=== PATIENT | male | born 1975 | race Two or more races ===

== ENCOUNTER 2018-03-20 14:22 | Emergency (ER) | payer MEDICAID ==
[~2018-03-20] VITALS: Ht 172.7 cm; Wt 81.0 kg
[~2018-03-20 14:22] MED LIST: CEPH-571 PO
[2018-03-20 14:45] VITALS: BP 169/108
[2018-03-20] MEDS ORDERED: TETanus/Pertussis (Acell)/Diphther VAC/PF (Tdap-Adult) 0.5ml syringe IM ONE (16:50)
[2018-03-20] MEDS ORDERED: LIDOcaine 1.5% w/epinephrine 1:200,000 5ml ampul IJ ONE (16:50)
[2018-03-20] MEDS ORDERED: LIDOcaine 1% w/EPI 1:100,000 30ml vial (MDV) IJ ONE (16:55)
[2018-03-20] MEDS ORDERED: CEPH-572 PO (17:16)
[2018-03-20] MEDS ORDERED: SULF1TAB49 PO (17:16)
[2018-03-20] MEDS ORDERED: cephalexin 250mg capsule PO ONE (17:20)
[2018-03-20] MEDS ORDERED: sulfamethoxazole/trimethoprim DS (800/160mg) tablet PO ONE (17:20)
== END 2018-03-20 17:28 | disposition home or self-care (01) ==
LOC: ER 14:22
DX: L02.416 Cutaneous abscess of left lower limb (principal); I10 Essential (primary) hypertension; F15.90 Other stimulant use, unspecified, uncomplicated; Z79.2 Long term (current) use of antibiotics; Z79.899 Other long term (current) drug therapy
CPT/HCPCS: 10060; 90471; 90715; 99283; J3490

== ENCOUNTER 2018-12-16 22:16 | Emergency (ER) | payer MEDICAID ==
[~2018-12-16] VITALS: Ht 172.7 cm; Wt 77.0 kg
[2018-12-16] MEDS ORDERED: CEPH-572 PO (23:42)
[2018-12-16] MEDS ORDERED: SULF1TAB49 PO (23:42)
[2018-12-17] MEDS ORDERED: IBUP-1985 PO (00:09)
[2018-12-17 00:19] VITALS: BP 160/100
== END 2018-12-17 00:21 | disposition home or self-care (01) ==
LOC: ER 22:17
DX: S91.302A Unspecified open wound, left foot, initial encounter (principal); S91.301A Unspecified open wound, right foot, initial encounter; L02.211 Cutaneous abscess of abdominal wall; I10 Essential (primary) hypertension; F15.90 Other stimulant use, unspecified, uncomplicated; Z79.2 Long term (current) use of antibiotics; Z79.899 Other long term (current) drug therapy; X58.XXXA Exposure to other specified factors, initial encounter; Y93.89 Activity, other specified; Y92.89 Other specified places as the place of occurrence of the external cause; Y99.8 Other external cause status
CPT/HCPCS: 99283

== ENCOUNTER 2020-05-24 03:34 | Emergency (ER) | payer MEDICAID ==
[~2020-05-24] VITALS: Ht 172.7 cm; Wt 77.3 kg
[~2020-05-24 03:34] MED LIST changes: +IBUP-1985 PO
[2020-05-24] MEDS ORDERED: lisinopril 10 MG tablet PO ONE (03:45)
[2020-05-24] MEDS ORDERED: amLODIPine 5mg tablet PO ONE (04:00)
--- NOTE | 2020-05-24 04:04 | NUR ---
GIVEN NORVASC 10 MG AND LISINOPRIL 10 MG PO. BP PRIOR TO MEDS 156/116, HR 89 NSR
[2020-05-24 04:05] VITALS: BP 156/116
[2020-05-24] MEDS ORDERED: LISI10TA27 PO (04:06)
[2020-05-24] MEDS ORDERED: AMLO10TA48 PO (04:06)
== END 2020-05-24 04:12 | disposition home or self-care (01) ==
LOC: ER 03:35
DX: Z00.8 Encounter for other general examination (principal); I10 Essential (primary) hypertension; F17.200 Nicotine dependence, unspecified, uncomplicated; F15.90 Other stimulant use, unspecified, uncomplicated; Z98.890 Other specified postprocedural states; Z72.89 Other problems related to lifestyle; Z79.2 Long term (current) use of antibiotics; Z79.899 Other long term (current) drug therapy
CPT/HCPCS: 99283

== ENCOUNTER 2021-02-26 02:47 | Emergency (ER) | payer MEDICAID ==
[~2021-02-26] VITALS: Ht 172.7 cm; Wt 93.2 kg
[~2021-02-26 02:47] MED LIST changes: +AMLO10TA48 PO; +LISI10TA27 PO
[2021-02-26 03:18] LABS: BASOPHILS # (AUTO) 0.1 X10'3 (0-0.2); EOSINOPHILS # (AUTO) 0.1 X10'3 (0-0.9); HEMATOCRIT 44.5 % (42.0-52.0); HEMOGLOBIN 15.1 g/dl (14.0-17.9); LYMPHOCYTES # (AUTO) 1.8 X10'3 (1.1-4.8); LYMPHOCYTES % (AUTO) 22.7 % (21-51); MEAN CORPUSCULAR HEMOGLOBIN 28.5 PG (27.0-31.0); MEAN CORPUSCULAR HGB CONC 33.8 g/dL (33.0-36.5); MEAN CORPUSCULAR VOLUME 84.3 FL (78-98); MEAN PLATELET VOLUME 7.5 FL (7.4-10.4); MONOCYTES # (AUTO) 0.8 X10'3 (0-0.9); NEUTROPHILS # (AUTO) 5.1 X10'3 (1.8-7.7); NEUTROPHILS % (AUTO) 65.3 % (42-75); PLATELET COUNT 318 X10'3 (140-440); RED BLOOD COUNT 5.28 X10'6 (4.70-6.10); RED CELL DISTRIBUTION WIDTH 14.2 % (11.5-14.5); WHITE BLOOD COUNT 7.8 X10'3 (4.5-11.0)
[2021-02-26] MEDS ORDERED: DOXYCYCLINE 100MG CAPSULE PO STA (03:32)
[2021-02-26 03:33] LABS: ALANINE AMINOTRANSFERASE 45 U/L (12-78); ALBUMIN 3.5 G/DL (3.4-5.0); ALBUMIN/GLOBULIN RATIO 0.9 (1.1-1.5); ALKALINE PHOSPHATASE 116 IU/L (46-116); ANION GAP 6 (8-16); ASPARTATE AMINO TRANSFERASE 15 U/L (10-37); BILIRUBIN,TOTAL 0.2 MG/DL (0.1-1.0); BLOOD UREA NITROGEN 14 MG/DL (7-18); BUN/CREATININE RATIO 10.8 (5.4-32.0); CALCIUM 8.9 MG/DL (8.5-10.1); CHLORIDE 105 MMOL/L (99-107); GLUCOSE 93 MG/DL (70-104); SODIUM 140 MMOL/L (135-145); TOTAL CARBON DIOXIDE 29.3 MMOL/L (24-32); TOTAL PROTEIN 7.2 G/DL (6.4-8.2); eGFR 59 ML/MIN
[2021-02-26] MEDS ORDERED: lisinopril 10 MG tablet PO ONE (03:35)
[2021-02-26] MEDS ORDERED: CefTRIAXone 500MG IM Kit w/LIDOcaine IM ONE (03:35)
[2021-02-26] MEDS ORDERED: amLODIPine 5mg tablet PO ONE (03:35)
[2021-02-26] MEDS ORDERED: CefTRIAXone 1000mg IM Kit (w/lidocaine diluent) IM ONE (03:40)
[2021-02-26] MEDS ORDERED: AMLO5TAB4 PO (03:56)
[2021-02-26] MEDS ORDERED: LISI20TA28 PO (03:56)
[2021-02-26] MEDS ORDERED: DOXY-1 PO (03:58)
[2021-02-26 04:23] VITALS: BP 165/105
== END 2021-02-26 04:27 | disposition home or self-care (01) ==
LOC: ER 02:47
DX: I10 Essential (primary) hypertension (principal); F15.90 Other stimulant use, unspecified, uncomplicated; Z72.89 Other problems related to lifestyle; Z79.2 Long term (current) use of antibiotics; Z79.899 Other long term (current) drug therapy
CPT/HCPCS: 36415; 71045; 80053; 83880; 84484; 85025; 93005; 96372; 99285; J0696

== ENCOUNTER 2021-06-26 22:52 | Inpatient (IN) | payer MEDICAID ==
[~2021-06-26] VITALS: Ht 172.7 cm; Wt 90.9 kg
[~2021-06-26 22:52] MED LIST changes: +AMLO5TAB4 PO
--- NOTE | 2021-06-26 23:39 | NUR ---
SPOKE TO DR SIERRA AFTER TRIAGING PT. GIVEN VO TO ORDER CHF WORKUP AND LACTIC D/T PURULENT DISCHARGE AND TACHYCARDIA
[2021-06-27 00:17] LABS: BASOPHILS # (AUTO) 0.1 X10'3 (0-0.2); BASOPHILS % (AUTO) 0.4 % (0-1); EOSINOPHILS % (AUTO) 0.1 % (0-6); HEMATOCRIT 41.5 % (42.0-52.0); HEMOGLOBIN 14.1 g/dl (14.0-17.9); LYMPHOCYTES # (AUTO) 0.5 X10'3 (1.1-4.8); LYMPHOCYTES % (AUTO) 2.8 % (21-51); MEAN CORPUSCULAR HEMOGLOBIN 28.4 PG (27.0-31.0); MEAN CORPUSCULAR HGB CONC 33.9 g/dL (33.0-36.5); MEAN CORPUSCULAR VOLUME 83.5 FL (78-98); MEAN PLATELET VOLUME 7.9 FL (7.4-10.4); MONOCYTES # (AUTO) 1.5 X10'3 (0-0.9); MONOCYTES % (AUTO) 8.1 % (2-12); NEUTROPHILS # (AUTO) 16.1 X10'3 (1.8-7.7); NEUTROPHILS % (AUTO) 88.6 % (42-75); PLATELET COUNT 288 X10'3 (140-440); RED BLOOD COUNT 4.97 X10'6 (4.70-6.10); RED CELL DISTRIBUTION WIDTH 14.6 % (11.5-14.5); WHITE BLOOD COUNT 18.1 X10'3 (4.5-11.0)
[2021-06-27 00:30] LABS: ALANINE AMINOTRANSFERASE 37 U/L (12-78); ALBUMIN 3.5 G/DL (3.4-5.0); ALKALINE PHOSPHATASE 108 IU/L (46-116); ANION GAP 7 (8-16); ASPARTATE AMINO TRANSFERASE 23 U/L (10-37); BILIRUBIN,TOTAL 0.4 MG/DL (0.1-1.0); BLOOD UREA NITROGEN 13 MG/DL (7-18); BUN/CREATININE RATIO 14.9 (5.4-32.0); CALCIUM 8.9 MG/DL (8.5-10.1); CHLORIDE 105 MMOL/L (99-107); CREATININE 0.87 MG/DL (0.60-1.10); GLUCOSE 139 MG/DL (70-104); POTASSIUM 3.7 MMOL/L (3.5-5.1); SODIUM 139 MMOL/L (135-145); TOTAL CARBON DIOXIDE 26.8 MMOL/L (24-32); TOTAL PROTEIN 7.1 G/DL (6.4-8.2); eGFR > 90 ML/MIN
--- NOTE | 2021-06-27 02:37 | NUR ---
Pt pink, no acute/resp distress. PIV site c/d/i s complication or adverse rxn. Bed in lowest position, wheels locked, call abebe in reach. Will continue to monitor pt for acute changes and needs.
--- NOTE | 2021-06-27 03:33 | NUR ---
Pt pink, PIV site c/d/i, no s/s complication or adverse. Pt states both his feet are hurting. ERP aware, no now orders at this time.
[2021-06-27] MEDS ORDERED: SULF1TAB49 PO (04:24)
[2021-06-27] MEDS ORDERED: sulfamethoxazole/trimethoprim DS (800/160mg) tablet PO ONE (04:25)
--- NOTE | 2021-06-27 04:30 | NUR ---
Pt pink, family at bedside.
[2021-06-27] MEDS ORDERED: CefTRIAXone 2gm/NS 100ml IVPB 100 ML IV ONE (04:55)
[2021-06-27] MEDS ORDERED: TETanus/Pertussis (Acell)/Diphther VAC/PF (Tdap-Adult) 0.5ml syringe IMVAC ONE (04:55)
[2021-06-27] MEDS ORDERED: vancomycin/NS 1 GM ADD-VANTAGE 250 ML IV ONE (04:55)
[2021-06-27] MEDS ORDERED: HYDROcodone/acetaminophen 5mg/325mg tablet PO PRN (05:00)
[2021-06-27] MEDS ORDERED: acetaminophen 325mg tablet PO PRN ×2 (05:00)
[2021-06-27] MEDS ORDERED: mag hydrox/Alum hydrox/simeth 30ml oral suspension PO PRN (05:00)
[2021-06-27] MEDS ORDERED: morphine 2 MG/ML inj. syringe IV PRN ×2 (05:00)
[2021-06-27] MEDS ORDERED: diphenhydrAMINE 50 mg/ml inj IV PRN (05:00)
[2021-06-27] MEDS ORDERED: acetaminophen 650mg rectal suppository RC PRN (05:00)
[2021-06-27] MEDS ORDERED: bisacodyl 10mg suppository rectal RC PRN (05:00)
[2021-06-27] MEDS ORDERED: ondansetron 4mg rapidly disintigrating tab PO PRN (05:00)
[2021-06-27] MEDS ORDERED: magnesium hydroxide 30ml (MOM) UD suspension PO PRN (05:00)
[2021-06-27] MEDS ORDERED: diphenhydrAMINE 25mg capsule PO PRN (05:00)
[2021-06-27] MEDS ORDERED: hydrALAZINE 20mg/ml inj. IV PRN (05:10)
[2021-06-27] MEDS: ondansetron/PF 4mg/2ml inj IV PRN ×2 (05:20→05:30)
[2021-06-27 05:57] LABS: HEMOGLOBIN A1C 5.7 % (4.5-6.2)
[2021-06-27 06:03] LABS: PHOSPHORUS 2.5 MG/DL (2.3-4.5)
--- NOTE | 2021-06-27 06:04 | NUR ---
Report given to niall MARMOLEJO.
[2021-06-27] MEDS ORDERED: piperacillin/tazo 4.5gm/100ml 100 ML IV SCH (08:00)
[2021-06-27] MEDS: docusate sod 100mg capsule PO SCH ×2 (08:00→20:00)
[2021-06-27] MEDS: dextrose 5%-1/2 normal saline 1,000 ML IV SCH ×2 (09:01→15:00)
[2021-06-27] MEDS: pantoprazole 40mg Tablet.DR PO SCH (09:13)
[2021-06-27] MEDS: heparin, porcine 5000 units/ml vial SQ SCH ×2 (09:14→20:43)
[2021-06-27 10:00] VITALS: BP 143/85
--- NOTE | 2021-06-27 10:43 | NUR ---
Paged PICC RN for midline placement.
--- NOTE | 2021-06-27 13:00 | NUR ---
Visitor at bedside. pt. refusing to wake up and answer admitting questions. Is arousal but then quickly goes back to sleep ignoring nursing. Will attempt dart at later time.
[2021-06-27 13:07] LABS: APTT 31 SECONDS (22-32)
[2021-06-27] MEDS ORDERED: LISI10TA27 PO (13:57)
[2021-06-27] MEDS ORDERED: AMLO10TA13 PO (13:57)
[2021-06-27] MEDS: vancomycin/NS 1 GM ADD-VANTAGE 250 ML IV SCH ×2 (14:01→20:45)
[2021-06-27] MEDS: piperacillin/tazo 4.5gm/100ml 100 ML IV SCH (16:08)
[2021-06-27] MEDS ORDERED: VANCOmycin 1250MG/NS 250ml Bag 250 ML IV SCH (17:00)
--- NOTE | 2021-06-27 18:43 | NUR ---
Gave report to Laura Sanchez RN.
--- NOTE | 2021-06-27 18:45 | NUR ---
Patient in room [facility]. I have received report from ELYSSA MARMOLEJO and had the opportunity to ask questions and assume patient care.
[2021-06-27 20:00] VITALS: BP 165/88
[2021-06-27] MEDS ORDERED: temazepam 15mg capsule PO PRN (21:00)
[2021-06-28] VITALS: BP 152/84
[2021-06-28] MEDS: piperacillin/tazo 4.5gm/100ml 100 ML IV SCH ×3 (00:16→17:18)
[2021-06-28] MEDS: dextrose 5%-1/2 normal saline 1,000 ML IV SCH ×3 (00:17→20:46)
[2021-06-28] MEDS ORDERED: VANCOMYCIN LEVEL IV ONE (04:30)
[2021-06-28] MEDS: vancomycin/NS 1 GM ADD-VANTAGE 250 ML IV SCH ×3 (05:21→20:46)
[2021-06-28 05:24] LABS: BASOPHILS % (AUTO) 0.5 % (0-1); EOSINOPHILS # (AUTO) 0.1 X10'3 (0-0.9); EOSINOPHILS % (AUTO) 0.8 % (0-6); HEMATOCRIT 39.6 % (42.0-52.0); HEMOGLOBIN 13.5 g/dl (14.0-17.9); LYMPHOCYTES # (AUTO) 0.8 X10'3 (1.1-4.8); LYMPHOCYTES % (AUTO) 7.6 % (21-51); MEAN CORPUSCULAR HEMOGLOBIN 28.8 PG (27.0-31.0); MEAN CORPUSCULAR HGB CONC 34.2 g/dL (33.0-36.5); MEAN CORPUSCULAR VOLUME 84.1 FL (78-98); MONOCYTES % (AUTO) 9.4 % (2-12); NEUTROPHILS # (AUTO) 8.3 X10'3 (1.8-7.7); NEUTROPHILS % (AUTO) 81.7 % (42-75); PLATELET COUNT 237 X10'3 (140-440); RED BLOOD COUNT 4.71 X10'6 (4.70-6.10); RED CELL DISTRIBUTION WIDTH 14.9 % (11.5-14.5); WHITE BLOOD COUNT 10.2 X10'3 (4.5-11.0)
[2021-06-28 05:35] LABS: ALANINE AMINOTRANSFERASE 29 U/L (12-78); ALBUMIN 2.8 G/DL (3.4-5.0); ALBUMIN/GLOBULIN RATIO 0.8 (1.1-1.5); ALKALINE PHOSPHATASE 83 IU/L (46-116); ANION GAP 7 (8-16); ASPARTATE AMINO TRANSFERASE 18 U/L (10-37); BILIRUBIN,TOTAL 0.4 MG/DL (0.1-1.0); BLOOD UREA NITROGEN 12 MG/DL (7-18); CALCIUM 8.3 MG/DL (8.5-10.1); CHLORIDE 108 MMOL/L (99-107); GLUCOSE 106 MG/DL (70-104); POTASSIUM 3.9 MMOL/L (3.5-5.1); SODIUM 142 MMOL/L (135-145); TOTAL CARBON DIOXIDE 26.6 MMOL/L (24-32); TOTAL PROTEIN 6.3 G/DL (6.4-8.2); VANCOMYCIN,TROUGH 12.4 UG/ML (6.0-14.0); eGFR 80 ML/MIN
--- NOTE | 2021-06-28 06:30 | NUR ---
Problems reprioritized. Patient report given, questions answered & plan of care reviewed with ELYSSA MARMOLEJO.
[2021-06-28 08:00] VITALS: BP 147/86
[2021-06-28] MEDS: docusate sod 100mg capsule PO SCH ×2 (08:43→20:46)
[2021-06-28] MEDS: heparin, porcine 5000 units/ml vial SQ SCH ×2 (08:43→20:45)
[2021-06-28] MEDS: pantoprazole 40mg Tablet.DR PO SCH (08:43)
[2021-06-28] MEDS: HYDROcodone/acetaminophen 10/325mg tab PO PRN (08:44)
[2021-06-28] MEDS ORDERED: amLODIPine 5mg tablet PO ONE (12:10)
[2021-06-28 12:23] VITALS: BP 147/84
--- NOTE | 2021-06-28 18:08 | NUR ---
Report given to Laura Sanchez RN.
--- NOTE | 2021-06-28 18:30 | NUR ---
Patient in room [facility]. I have received report from ELYSSA MARMOLEJO and had the opportunity to ask questions and assume patient care.
[2021-06-28 20:00] VITALS: BP 159/103
[2021-06-29] VITALS: BP 129/75
[2021-06-29] MEDS: piperacillin/tazo 4.5gm/100ml 100 ML IV SCH ×2 (00:58→09:01)
[2021-06-29] MEDS: dextrose 5%-1/2 normal saline 1,000 ML IV SCH (01:03)
[2021-06-29] MEDS: vancomycin/NS 1 GM ADD-VANTAGE 250 ML IV SCH ×3 (05:11→20:51)
[2021-06-29 06:12] LABS: BASOPHILS % (AUTO) 0.6 % (0-1); EOSINOPHILS # (AUTO) 0.1 X10'3 (0-0.9); EOSINOPHILS % (AUTO) 1.9 % (0-6); HEMATOCRIT 38.4 % (42.0-52.0); HEMOGLOBIN 12.7 g/dl (14.0-17.9); LYMPHOCYTES % (AUTO) 16.2 % (21-51); MEAN CORPUSCULAR HEMOGLOBIN 27.9 PG (27.0-31.0); MEAN CORPUSCULAR VOLUME 84.5 FL (78-98); MEAN PLATELET VOLUME 8.2 FL (7.4-10.4); MONOCYTES # (AUTO) 0.7 X10'3 (0-0.9); MONOCYTES % (AUTO) 10.8 % (2-12); NEUTROPHILS # (AUTO) 4.4 X10'3 (1.8-7.7); NEUTROPHILS % (AUTO) 70.5 % (42-75); PLATELET COUNT 282 X10'3 (140-440); RED BLOOD COUNT 4.55 X10'6 (4.70-6.10); RED CELL DISTRIBUTION WIDTH 14.8 % (11.5-14.5); WHITE BLOOD COUNT 6.2 X10'3 (4.5-11.0)
[2021-06-29 06:23] LABS: URINE AMPHETAMINE SCREEN POSITIVE (Neg); URINE BARBITUATE SCREEN NEGATIVE (Neg); URINE BENZODIAZEPINES SCREEN NEGATIVE (Neg); URINE CANNABINOID SCREEN NEGATIVE (Neg); URINE COCAINE SCREEN NEGATIVE (Neg); URINE METHADONE SCREEN NEGATIVE (Neg); URINE OPIATE SCREEN POSITIVE (Neg); URINE PHENCYCLIDINE SCREEN NEGATIVE (Neg)
[2021-06-29 06:24] LABS: ALANINE AMINOTRANSFERASE 26 U/L (12-78); ALBUMIN 2.5 G/DL (3.4-5.0); ALBUMIN/GLOBULIN RATIO 0.7 (1.1-1.5); ALKALINE PHOSPHATASE 84 IU/L (46-116); ANION GAP 9 (8-16); ASPARTATE AMINO TRANSFERASE 13 U/L (10-37); BILIRUBIN,TOTAL 0.3 MG/DL (0.1-1.0); BLOOD UREA NITROGEN 11 MG/DL (7-18); BUN/CREATININE RATIO 10.9 (5.4-32.0); CALCIUM 8.3 MG/DL (8.5-10.1); CHLORIDE 106 MMOL/L (99-107); CREATININE 1.01 MG/DL (0.60-1.10); GLUCOSE 162 MG/DL (70-104); POTASSIUM 3.6 MMOL/L (3.5-5.1); SODIUM 141 MMOL/L (135-145); TOTAL CARBON DIOXIDE 26.3 MMOL/L (24-32); eGFR 79 ML/MIN
--- NOTE | 2021-06-29 06:30 | NUR ---
Problems reprioritized. Patient report given, questions answered & plan of care reviewed with GILMAR MARMOLEJO.
[2021-06-29 08:00] VITALS: BP 151/83
[2021-06-29] MEDS: pantoprazole 40mg Tablet.DR PO SCH (09:00)
[2021-06-29] MEDS: docusate sod 100mg capsule PO SCH ×2 (09:03→20:51)
[2021-06-29] MEDS: lisinopril 10 MG tablet PO SCH (09:03)
[2021-06-29] MEDS: amLODIPine 5mg tablet PO SCH (09:04)
[2021-06-29] MEDS: heparin, porcine 5000 units/ml vial SQ SCH ×2 (09:07→20:52)
--- NOTE | 2021-06-29 10:09 | NUR ---
Patient refused assessment of lower extremities. Unable to take off bandages at this time or evaluate feet. Addendum: 06/29/21 at 1019 by Leanne Rai RN, RN Amended: Links added.
[2021-06-29 12:00] VITALS: BP 172/94
[2021-06-29 15:18] VITALS: BP 150/81
--- NOTE | 2021-06-29 18:20 | NUR ---
Problems reprioritized. Patient report given, questions answered & plan of care reviewed with Fawn MARMOLEJO.
--- NOTE | 2021-06-29 18:30 | NUR ---
Patient in room [facility]. I have received report from JALEEL Perdomo and had the opportunity to ask questions and assume patient care. Visitor at bedside assisting pt with dinner, no complaints Addendum: 06/29/21 at 1842 by Giovani Leach RN Amended: Links added.
[2021-06-29 19:00] VITALS: BP 139/79
--- NOTE | 2021-06-29 21:00 | NUR ---
refuses to have feet assessed or touched. Addendum: 06/29/21 at 2497 by Giovani Leach RN Amended: Links added.
--- NOTE | 2021-06-29 21:00 | NUR ---
sig other in bed with pt sleeping, explained hosp visiting rules, and no visitors allowed in pt bed d/t safety. pt somewhat angry, refuses most of s=assessment, refuses to have feet touched dressing change or even pulse taken on feet. "do not touch my feet". Addendum: 06/29/21 at 2111 by Giovani Leach RN Amended: Links added.
[2021-06-29] MEDS: HYDROcodone/acetaminophen 10/325mg tab PO PRN (21:05)
[2021-06-29 23:00] VITALS: BP 149/77
--- NOTE | 2021-06-29 23:09 | NUR ---
visitor is in room with pt in bed, asked visitor to leave per hospital protocol. Wharf Attendant called and visiting hours had visitors protocol has not changed. Addendum: 06/29/21 at 2311 by Giovani Leach RN Amended: Links added.
--- NOTE | 2021-06-29 23:20 | NUR ---
spoke with pt and sig other, she apologizes and is leaving now. discussed plan of care with pt, he wants to be discharged tomorrow. pt ordered, will need to speak with md in am. pt verbalizes understanding. Addendum: 06/29/21 at 2321 by Giovani Leach RN Amended: Links added.
[2021-06-30] MEDS: vancomycin/NS 1 GM ADD-VANTAGE 250 ML IV SCH ×2 (05:33→13:00)
[2021-06-30] MEDS: HYDROcodone/acetaminophen 10/325mg tab PO PRN (05:33)
--- NOTE | 2021-06-30 06:06 | NUR ---
Problems reprioritized. Patient report given, questions answered & plan of care reviewed with JALEEL HARRIS. Addendum: 06/30/21 at 0606 by Giovani Leach RN Amended: Links added.
--- NOTE | 2021-06-30 06:13 | NUR ---
Patient in room [facility]. I have received report from JALEEL POTTER and had the opportunity to ask questions and assume patient care.
[2021-06-30 07:00] VITALS: BP 149/84
[2021-06-30] MEDS: docusate sod 100mg capsule PO SCH (08:48)
[2021-06-30] MEDS: lisinopril 10 MG tablet PO SCH (08:48)
[2021-06-30] MEDS: pantoprazole 40mg Tablet.DR PO SCH (08:49)
[2021-06-30] MEDS: amLODIPine 5mg tablet PO SCH (08:49)
[2021-06-30] MEDS: heparin, porcine 5000 units/ml vial SQ SCH (08:52)
--- NOTE | 2021-06-30 09:58 | NUR ---
PATIENT REFUSED TO HAVE HIS PEDAL PULSES CHECKED. WILL ATTEMPT WITH DRESSING CHANGE LATER Addendum: 06/30/21 at 0959 by Abiola Castillo RN Amended: Links added.
[2021-06-30 11:00] VITALS: BP 135/79
[2021-06-30] MEDS ORDERED: HYDR-3965 PO (12:07)
[2021-06-30] MEDS ORDERED: CLIN-91 PO (12:07)
--- NOTE | 2021-06-30 14:53 | NUR ---
PATIENT STABLE AND APPROPRIATE FOR DISCHARGE, IV AND MIDLINE TAKEN OUT, SCRIPTS FOR NEW MEDS SENT WITH PATIENT, EDUCATION GIVEN, WHEELCHAIR GIVEN BY KEVIN, WOUND CARE SUPPLIES GIVEN, PATIENT WAS ABLE TO PREFORM DRESSING CHANGE ON OWN, PATIENT TAKEN TO TO AN AWAITING CAR WHERE SIGNIFICANT OTHER WILL TAKE THE PATIENT HOME
== END 2021-06-30 14:53 | disposition home or self-care (01) | DRG 720 ==
LOC: ER 22:53 → ED HOLD 06-27 05:06 → SUR 3N 06-27 07:41
PROVIDERS: ADMIT Family Medicine; ATTEND Family Medicine
PROC: 3E0234Z Introduction of Serum, Toxoid and Vaccine into Muscle, Percutaneous Approach (ICD-10-PCS; principal; 2021-06-27)
DX: A41.9 Sepsis, unspecified organism (principal); S91.301A Unspecified open wound, right foot, initial encounter; L03.115 Cellulitis of right lower limb; T69.021A Immersion foot, right foot, initial encounter; T69.022A Immersion foot, left foot, initial encounter; S91.302A Unspecified open wound, left foot, initial encounter; X58.XXXA Exposure to other specified factors, initial encounter; F15.129 Other stimulant abuse with intoxication, unspecified; R26.2 Difficulty in walking, not elsewhere classified; I10 Essential (primary) hypertension; I16.0 Hypertensive urgency; L03.116 Cellulitis of left lower limb; L30.8 Other specified dermatitis; Z79.899 Other long term (current) drug therapy; Z23 Encounter for immunization; Z71.51 Drug abuse counseling and surveillance of drug abuser; Y93.89 Activity, other specified; Y92.89 Other specified places as the place of occurrence of the external cause; Y99.8 Other external cause status
CPT/HCPCS: 36415; 73620; 80053; 80202; 80305; 83036; 83605; 83735; 83880; 84100; 84443; 84484; 85025; 85610; 85651; 85730; 87040; 87081; 90715; 93005; 97161; 97530; 97542; 99285; G0378; J0360; J0696; J1644; J2270; J2405; J2543; J3370; J7042